=== PATIENT | male | born 1955 | race African-American/Black ===

== ENCOUNTER 2017-05-23 06:03 | Day surgery (SDC) | payer MEDICARE ==
[2017-05-22 15:28] VITALS: BMI 49.4
[2017-05-23 06:47] LABS: #Eosinphils 0.2 thou/uL (0.0-0.7); #Lymphocytes 2.5 thou/uL (1.20-3.40); #Monocytes 0.7 thou/uL (0.11-0.59); #Neutrophils 3.1 thou/uL (1.40-6.50); %Basophils 0.5 % (0.0-1.0); %Eosinophils 2.6 % (0.0-10.0); %Lymphocytes 38.6 % (21.0-51.0); Hematocrit 40.7 % (42.0-52.0); Mean Platelet Volume 7.7 fL (7.4-10.4); Red Blood Cell (RBC) Count 4.72 mill/uL (4.70-6.10); White Blood Cell (WBC) Count 6.4 thou/uL (4.8-10.8)
[2017-05-23] MEDS ORDERED: Heparin 5,000 UNITS/ML VIAL ONE ×2 (06:48→08:33)
[2017-05-23] MEDS ORDERED: Ioversol 68 % 50 ML VIAL ONE (06:48)
[2017-05-23] MEDS ORDERED: Bupivacaine 0.25% HCL 30 ML VIAL ONE (06:48)
[2017-05-23] MEDS ORDERED: Protamine Sulfate 50 MG/5 ML VIAL ONE (06:49)
[2017-05-23 06:59] LABS: Anion Gap 19 mmol/L (10-20); BUN (Urea Nitrogen) 28 mg/dL (8.4-25.7); Calc. Creatinine Clearance 29 mL/min (70-130); Calcium 9.1 mg/dL (7.8-10.44); Carbon Dioxide 28 mmol/L (23-31); Chloride 96 mmol/L (98-107); Estimated GFR-MDRD 13
[2017-05-23] MEDS ORDERED: Midazolam HCl 2 mg/2 ml Vial ONE (07:02)
[2017-05-23] MEDS ORDERED: Fentanyl 100 MCG/2 ML VIAL ONE ×2 (07:02→09:54)
[2017-05-23] MEDS ORDERED: CEFAZOLIN/Water 2 GM/20 ML SYRINGE ONE (07:15)
[2017-05-23] MEDS ORDERED: Propofol 500 MG/50 ML VIAL ONE ×3 (07:30→09:54)
[2017-05-23] MEDS ORDERED: Labetalol HCl 100 MG/20 ML SYR ONE (09:20)
[2017-05-23] MEDS ORDERED: Propofol 200 MG/20 ML VIAL ONE (09:20)
[2017-05-23] MEDS ORDERED: Heparin 10,000 UNITS/ 10 ML VIAL ONE (10:59)
--- NOTE | 2017-05-31 19:00 | PDOC.OP ---
Operative Note - Operative Note Operative Note: PROCEDURE: Left upper arm radiocephalic AV fistula SURGEON: Kenyetta Devries M.D. DATE OF PROCEDURE: 05/23/2017 PREOPERATIVE DIAGNOSIS: Renal failure POSTOPERATIVE DIAGNOSIS: Renal failure HISTORY: Patient with end-stage renal failure and failed left Mickey fistula likely due to severely calcified radial artery. He returns to the operating room for a left upper arm AV fistula. PROCEDURE IN DETAIL: After informed consent was obtained and appropriate preoperative antibiotics administered, the patient was taken to the operating room and placed in the supine position and monitored anesthesia care was administered. A preoperative block had been performed by Anesthesia and the adequacy of block was confirmed. The arm was prepped and draped in a standard sterile fashion and an incision made between the palpable antecubital vein and radial artery. Dissection was carried out to the cephalic vein, which appeared to be of adequate quality and caliber to support a fistula. This was dissected free circumferentially, ligated, and divided distally, and spatulated with Espinoza scissors. This was serially interrogated with cardiac dilators and easily accepted up to a 4 mm cardiac dilator. This was flushed with heparinized saline and clamped with a bulldog clamp. The radial artery was then dissected free and found to be of adequate quality and caliber to support a fistula. The ulnar artery was not identified and the patient likely had a high branching of his brachial artery. He had a monophasic s signal in his ulnar artery and no palpable pulse at the level of the wrist. Heparin was administered systemically and allowed to circulate for 3 minutes following which the radial artery was clamped proximally and distally, with no change in the monophasic signal at the level of the ulnar artery but loss of signal in the radial artery after clamping, confirming that this was the radial artery. An anterior arteriotomy was created with an 11 blade scalpel and extended with Espinoza scissors. An end-to-side anastomosis created with a running 6-0 Prolene suture with excellent technical result. Prior to tying down the anastomosis, the inflow was released to flush the anastomosis. Flow was established first through the fistula and then through the distal radial artery. Hemostasis at the site was confirmed, and an excellent thrill was felt in the cephalic vein outflow and an excellent bruit was heard with Doppler as well up to the upper arm. Hemostasis at the operative site was again confirmed. The incision was closed with a running 3-0 subcutaneous and running 4-0 subcuticular Monocryl sutures. Dermabond dressings were placed and the patient was taken to the recovery room in good condition. Estimated blood loss was minimal. There were no complications. There were no specimens.
== END 2017-05-23 11:15 | disposition home or self-care (01) ==
LOC: SDC 06:03
PROVIDERS: ATTEND Surgery
PROC: 031C0AF Bypass Left Radial Artery to Lower Arm Vein with Autologous Arterial Tissue, Open Approach (ICD-10-PCS; principal; 2017-05-23)
DX: E11.22 Type 2 diabetes mellitus with diabetic chronic kidney disease (principal); I12.0 Hypertensive chronic kidney disease with stage 5 chronic kidney disease or end stage renal disease; N18.6 End stage renal disease; E78.5 Hyperlipidemia, unspecified; Z87.891 Personal history of nicotine dependence; Z83.3 Family history of diabetes mellitus; Z82.49 Family history of ischemic heart disease and other diseases of the circulatory system; Z99.2 Dependence on renal dialysis
CPT/HCPCS: 80048; 85025; J1644; J2250; J2704; J2720; J3010; Q9967; S0020

== ENCOUNTER 2017-07-30 10:47 | Day surgery (SDC) | payer MEDICARE ==
[2017-07-29 14:05] VITALS: BMI 50.1
[2017-07-30] MEDS ORDERED: Heparin 5,000 UNITS/ML VIAL ONE (11:46)
[2017-07-30] MEDS ORDERED: Protamine Sulfate 50 MG/5 ML VIAL ONE (11:46)
[2017-07-30] MEDS ORDERED: Bupivacaine/Epinephrine 0.25% 30 ML VIAL ONE (11:46)
[2017-07-30] MEDS ORDERED: CEFAZOLIN/Water 2 GM/20 ML SYRINGE ONE (11:53)
[2017-07-30 11:58] LABS: #Eosinphils 0.1 thou/uL (0.0-0.7); #Monocytes 0.7 thou/uL (0.11-0.59); #Neutrophils 3.4 thou/uL (1.40-6.50); %Basophils 0.8 % (0.0-1.0); %Eosinophils 2.2 % (0.0-10.0); %Monocytes 11.6 % (0.0-10.0); %Neutrophils 53.4 % (42.0-75.0); Hemoglobin 10.6 g/dL (14.0-18.0); Mean Corpuscular HGB CONC 31.7 g/dL (32.0-36.0); Mean Corpuscular Hemoglobin 29.4 pg (27.0-31.0); Mean Corpuscular Volume 92.7 fl (80.0-94.0); Mean Platelet Volume 7.6 fL (7.4-10.4); Platelet Count 164 thou/uL (130-400); RBC Distribution Width 15.9 % (11.5-14.5); Red Blood Cell (RBC) Count 3.62 mill/uL (4.70-6.10); White Blood Cell (WBC) Count 6.3 thou/uL (4.8-10.8)
[2017-07-30] MEDS ORDERED: Fentanyl 100 MCG/2 ML VIAL ONE ×2 (12:06→12:38)
[2017-07-30] MEDS ORDERED: Midazolam HCl 2 mg/2 ml Vial ONE ×2 (12:06→12:38)
[2017-07-30] MEDS ORDERED: Lidocaine 1% (PF) 30 ML VIAL ONE (12:10)
[2017-07-30 12:33] LABS: Anion Gap 16 mmol/L (10-20); BUN (Urea Nitrogen) 36 mg/dL (8.4-25.7); Calc. Creatinine Clearance 26 mL/min (70-130); Calcium 8.9 mg/dL (7.8-10.44); Carbon Dioxide 30 mmol/L (23-31); Chloride 98 mmol/L (98-107); Estimated GFR-MDRD 11; Glucose 124 mg/dL (80-115); Potassium 3.9 mmol/L (3.5-5.1); Sodium 140 mmol/L (136-145)
[2017-07-30] MEDS ORDERED: Diprivan 0 ML ONE (13:20)
[2017-07-30] MEDS ORDERED: Propofol 500 MG/50 ML VIAL ONE (13:20)
[2017-07-30] MEDS ORDERED: Bupivacaine PF 0.5% 30 ML VIAL ONE (14:59)
[2017-07-30] MEDS ORDERED: Heparin 10,000 UNITS/ 10 ML VIAL ONE ×2 (15:46→15:57)
[2017-07-30] MEDS ORDERED: Propofol 200 MG/20 ML VIAL ONE (15:46)
--- NOTE | 2017-07-31 17:21 | PDOC.OP ---
Operative Note - Operative Note Operative Note: PROCEDURE: Revision and transposition of left upper arm cephalic AV fistula DATE OF PROCEDURE: 07/30/2017 SURGEON: Kenyetta Devries M.D. PREOPERATIVE DIAGNOSES: Left upper arm cephalic AV fistula too deep to access POSTOPERATIVE DIAGNOSIS: Left upper arm cephalic AV fistula too deep to access, with short stenotic segment HISTORY: Mr. Davis is a 61-year-old man with end-stage renal failure on dialysis. He has a left upper arm cephalic fistula but due to his body habitus this is too deep to palpate above the antecubital fossa. Recommendation was made to proceed with transposition. PROCEDURE IN DETAIL: After informed consent was obtained and appropriate preoperative antibiotics and block were administered, the patient was taken to the operating room he was placed in supine position and IV sedation was administered. He was prepped and draped in standard sterile fashion and local anesthesia infused the skin and subcutaneous tissues overlying the upper arm cephalic vein. This was dissected free from the level of the antecubital fossa to the shoulder, ligating side branches as they were encountered and marking the anterior surface of the vein to prevent rotation during transposition. The proximal segment appeared well dilated and arterialized but there was a short fibrotic segments in the mid upper arm with normal-appearing vein above it. It was felt that this would lead to a shortened lifespan of the fistula and prevent maturation of the upper arm vein so the decision was made to excise this segments and then transpose the vein to a more subcutaneous position. There was adequate laxity in the vein to allow this as only about a centimeter of the vein was abnormal. Heparin was administered systemically and allowed to circulate for 3 minutes following which the fistula was occluded proximally with vessel loops. The stenotic segment was incised anteriorly with an 11 blade and heparinized saline infused proximally and distally and the vein re-occluded proximally and distally. The incision was extended with Espinoza scissors until normal vein was encountered proximally and distally. The vein was spatulated proximally and distally excising the stenotic segment and incorporating a large side branch of the upper vein into the spatulation to allow a wider anastomosis. An end-to-end anastomosis was then created with a running 6-0 Prolene suture with excellent technical result. Flow was restored through the fistula and hemostasis at the suture line confirmed. A superficial subcutaneous space was then created medial to the incision by incising the subcutaneous fat up to the level of the dermis. The vein easily reached up into this space and was transpose taking care to maintain the correct orientation. Subcutaneous tissues were then reapproximated lateral to the vein creating a subcutaneous tunnel and fixing the vein in place. The wound was then examined and hemostasis verified. Surgicel was placed into the subcutaneous tissues as a precaution and the subcutaneous tissues reapproximated in layers. The skin was closed with skin jo ann and the fistula had an easily palpable thrill along the upper arm. A Prevena wound dressing was placed. The arm was wrapped with an Celestino wrap and the patient was taken to the recovery room in good condition. Estimated blood loss was minimal. There were no complications. There were no specimens.
== END 2017-07-30 16:42 | disposition home or self-care (01) ==
LOC: SDC 10:47
PROVIDERS: ATTEND Surgery
PROC: 03180ZD Bypass Left Brachial Artery to Upper Arm Vein, Open Approach (ICD-10-PCS; principal; 2017-07-30)
DX: I12.0 Hypertensive chronic kidney disease with stage 5 chronic kidney disease or end stage renal disease (principal); E11.22 Type 2 diabetes mellitus with diabetic chronic kidney disease; N18.6 End stage renal disease; Z79.4 Long term (current) use of insulin; Z79.899 Other long term (current) drug therapy; Z79.82 Long term (current) use of aspirin; Z99.2 Dependence on renal dialysis; Z90.49 Acquired absence of other specified parts of digestive tract; Z98.890 Other specified postprocedural states; Z83.3 Family history of diabetes mellitus; Z82.49 Family history of ischemic heart disease and other diseases of the circulatory system
CPT/HCPCS: 36416; 80048; 85025; 96374; J1644; J2001; J2250; J2704; J2720; J3010; S0020

== ENCOUNTER 2017-08-27 09:58 | Outpatient (CLI) | payer MEDICARE | END 2017-08-27 09:59 | disposition home or self-care (01) | LOC: BICRAD 09:58 | DX: L97.429 Non-pressure chronic ulcer of left heel and midfoot with unspecified severity (principal); S92.515A Nondisplaced fracture of proximal phalanx of left lesser toe(s), initial encounter for closed fracture; M79.89 Other specified soft tissue disorders; M89.572 Osteolysis, left ankle and foot ==

== ENCOUNTER 2018-05-27 08:23 | Day surgery (SDC) | payer MEDICARE ==
[2018-05-26 13:22] VITALS: BMI 50.4
[2018-05-27] MEDS ORDERED: Midazolam HCl 2 mg/2 ml Vial ONE ×2 (10:47→15:19)
[2018-05-27 13:38] LABS: Hemoglobin 12.2 g/dL (14.0-18.0); Mean Corpuscular HGB CONC 30.5 g/dL (32.0-36.0); Mean Corpuscular Hemoglobin 28.3 pg (27.0-31.0); Mean Corpuscular Volume 92.8 fL (78.0-98.0); Mean Platelet Volume 8.2 fL (7.4-10.4); Platelet Count 166 thou/uL (130-400)
[2018-05-27 13:39] LABS: Anion Gap 22 mmol/L (10-20); BUN (Urea Nitrogen) 27 mg/dL (8.4-25.7); Calc. Creatinine Clearance 26 mL/min (70-130); Calcium 8.9 mg/dL (7.8-10.44); Carbon Dioxide 24 mmol/L (23-31); Chloride 96 mmol/L (98-107); Estimated GFR-MDRD 11; Glucose 141 mg/dL (80-115); Potassium 3.6 mmol/L (3.5-5.1); Sodium 138 mmol/L (136-145)
[2018-05-27 13:41] LABS: Lymphocytes 26 % (21-51); MDiff Complete? YES; Monocytes 6 % (0-10); Neutrophil 68 % (42-75); RBC Morphology Normal; White Blood Cell (WBC) Count 8.3 thou/uL (4.8-10.8)
[2018-05-27] MEDS ORDERED: Ketamine 50 MG/ML VIAL ONE (15:19)
[2018-05-27] MEDS ORDERED: ePHEDrine/0.9% NaCl/PF SYRINGE 50 mg/10 ml ONE (16:11)
[2018-05-27] MEDS ORDERED: Glycopyrrolate 0.2 MG/ML 5 ML SYRINGE ONE (16:11)
--- NOTE | 2018-05-28 01:13 | OP ---
DATE OF PROCEDURE: 05/27/2018 PROCEDURES: Esophagogastroduodenoscopy dilatation and screening colonoscopy. PREPROCEDURE DIAGNOSES: 1. Dysphagia for solids intermittently for several months in the mid chest region with no bolus obst ruction. 2. Screening colonoscopy. ANESTHESIA: TIVA. DESCRIPTION OF PROCEDURE: The patient was just brought to endoscopy suite and his systolic blood pre ssures were in the 60s-80s, although he was completely awake with no symptoms. He was afebrile. His pulse was normal. When I have cancelled the procedure, I called his ingot caster noting he had a no rmal echocardiogram in October of this year with normal ejection fraction. 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 He had no evidence of block on his EKG here. CBC showed a white co unt of 8.3, hemoglobin 12.2, platelet count is 166. Sodium was 138, potassium 3.6, BUN and creatinin e are 27 and 6.14, it was felt that he is likely dry from dialysis yesterday. He was given a liter b olus of saline and we waited a couple of hours and his pressure came to the systolics in the 80s and 90s. He underwent the procedure with ketamine with no complications and stable blood pressure throug holashell. POSTPROCEDURE DIAGNOSES: 1. He has mildly dilated esophagus, but no evidence of strictures. There was a mild Schatzki's ring associated with a hiatal hernia. The entire esophagus was dilated with 20 mm balloon with no effect . 2. The stomach was normal as was the duodenum. 3. Colonoscopy screening was normal. RECOMMENDATIONS: 1. Repeat colonoscopy in 10 years. 2. Trial of Protonix 40 mg once daily. 3. PCP and his dialysis physician.
== END 2018-05-27 16:50 | disposition home or self-care (01) ==
LOC: SDC 08:23
PROVIDERS: ATTEND Internal Medicine Gastroenterology
PROC: 0DJD8ZZ Inspection of Lower Intestinal Tract, Via Natural or Artificial Opening Endoscopic (ICD-10-PCS; principal; 2018-05-27)
PROC: 0D758ZZ Dilation of Esophagus, Via Natural or Artificial Opening Endoscopic (ICD-10-PCS; 2018-05-27)
DX: Z12.11 Encounter for screening for malignant neoplasm of colon (principal); K22.2 Esophageal obstruction; K44.9 Diaphragmatic hernia without obstruction or gangrene; K22.8 Other specified diseases of esophagus; G47.30 Sleep apnea, unspecified; E78.00 Pure hypercholesterolemia, unspecified; E11.22 Type 2 diabetes mellitus with diabetic chronic kidney disease; N18.9 Chronic kidney disease, unspecified; E66.9 Obesity, unspecified; Z68.43 Body mass index [BMI] 50.0-59.9, adult; Z86.73 Personal history of transient ischemic attack (TIA), and cerebral infarction without residual deficits; Z87.891 Personal history of nicotine dependence; Z79.02 Long term (current) use of antithrombotics/antiplatelets; Z79.4 Long term (current) use of insulin; Z79.82 Long term (current) use of aspirin; Z79.899 Other long term (current) drug therapy; Z88.0 Allergy status to penicillin; Z95.0 Presence of cardiac pacemaker
CPT/HCPCS: 43249; 80048; 82962; 85025; G0121; 36416; J2250

== ENCOUNTER 2021-06-26 18:50 | Inpatient (IN) | payer MEDICARE ==
[~2021-06-26 18:50] MED LIST: Iopamidol-370 76% 500 ML 1 ML ONE
[2021-06-26] MEDS ORDERED: Cefepime 2 GM VIAL ONE (20:38)
[2021-06-26] MEDS ORDERED: VANCOMYCIN 2 GRAM/400 ML BAG 2 GM in Premix Bag 1 BAG IVPB SCH (20:45)
[2021-06-26 21:02] LABS: #Basophils 0.1 thou/uL (0.0-0.2); #Eosinphils 0.3 thou/uL (0.0-0.7); #Monocytes 0.7 thou/uL (0.11-0.59); #Neutrophils 8.7 thou/uL (1.40-6.50); %Basophils 0.7 % (0.0-1.0); %Eosinophils 2.7 % (0.0-10.0); %Monocytes 5.7 % (0.0-10.0); %Neutrophils 67.9 % (42.0-75.0); Hemoglobin 10.7 g/dL (14.0-18.0); Mean Corpuscular HGB CONC 30.7 g/dL (32.0-36.0); Mean Corpuscular Hemoglobin 27.7 pg (27.0-31.0); Mean Corpuscular Volume 90.4 fL (78.0-98.0); Mean Platelet Volume 6.6 fL (7.4-10.4); Platelet Count 295 thou/uL (130-400); RBC Distribution Width 15.1 % (11.5-14.5); Red Blood Cell (RBC) Count 3.87 mill/uL (4.70-6.10); White Blood Cell (WBC) Count 12.8 thou/uL (4.8-10.8)
[2021-06-26 21:26] LABS: ALT (SGPT) 22 U/L (8-55); AST (SGOT) 46 U/L (5-34); Albumin 2.7 g/dL (3.4-4.8); Alkaline Phosphatase 91 U/L (40-110); Anion Gap 14 mmol/L (10-20); BUN (Urea Nitrogen) 9 mg/dL (8.4-25.7); Bilirubin, Total 0.3 mg/dL (0.2-1.2); Calc. Creatinine Clearance 0 mL/min (70-130); Calcium 9.4 mg/dL (7.8-10.44); Carbon Dioxide 29 mmol/L (23-31); Chloride 97 mmol/L (98-107); Globulin 5.1 g/dL (2.4-3.5); Glucose 114 mg/dL (80-115); Potassium 3.5 mmol/L (3.5-5.1); Protein, Total 7.8 g/dL (5.8-8.1); Sodium 136 mmol/L (136-145)
[2021-06-26] MEDS ORDERED: Ondansetron PF 4 MG/2 ML Vial IVP PRN (23:34)
[2021-06-26] MEDS ORDERED: Dextrose 5% in Water 1,000 ML IV PRN (23:34)
[2021-06-26] MEDS ORDERED: HumaLOG 300 UNITS/3 ML VIAL SC PRN ×2 (23:34)
[2021-06-26] MEDS ORDERED: Bisacodyl 10 MG SUPP PR PRN (23:34)
[2021-06-26] MEDS ORDERED: Dextrose 50% Abboject 50 ML SYRINGE SLOW IVP PRN (23:34)
[2021-06-26] MEDS ORDERED: Heparin 5,000 UNITS/ML VIAL SC SCH (23:45)
[2021-06-26] MEDS ORDERED: Morphine 4 MG/ML VIAL SLOW IVP PRN (23:46)
[2021-06-27 01:25] VITALS: BMI 46.7
[2021-06-27] MEDS ORDERED: metroNIDAZOLE 250 MG TAB PO SCH (02:45)
[2021-06-27] MEDS: Levothyroxine Sodium 25 MCG TAB PO SCH (04:55)
[2021-06-27] MEDS ORDERED: metroNIDAZOLE 250 MG in Admixture Fee 2 EACH IVPB SCH (06:00)
[2021-06-27] MEDS: Calcium Acetate 667 MG CAP PO SCH ×3 (08:00→17:58)
[2021-06-27] MEDS ORDERED: FLU VACC QS2021-22(65YR UP)/PF 240 MCG/0.7 ML SYRINGE IM ONE (09:00)
[2021-06-27] MEDS ORDERED: Cefepime 1 GM in Sodium Chloride 0.9% 100 ML IVPB SCH (09:00)
[2021-06-27 09:21] LABS: Albumin 2.5 g/dL (3.4-4.8); Anion Gap 11 mmol/L (10-20); BUN (Urea Nitrogen) 13 mg/dL (8.4-25.7); BUN/Creatinine Ratio 3.56; Calc. Creatinine Clearance 39 mL/min (70-130); Calcium 9.4 mg/dL (7.8-10.44); Carbon Dioxide 28 mmol/L (23-31); Chloride 99 mmol/L (98-107); Glucose 97 mg/dL (80-115); Potassium 3.2 mmol/L (3.5-5.1); Sodium 135 mmol/L (136-145)
[2021-06-27 09:24] LABS: Hemoglobin 10.3 g/dL (14.0-18.0); Mean Corpuscular HGB CONC 29.9 g/dL (32.0-36.0); Mean Corpuscular Hemoglobin 27.2 pg (27.0-31.0); Mean Corpuscular Volume 90.8 fL (78.0-98.0); Mean Platelet Volume 6.8 fL (7.4-10.4); Platelet Count 254 thou/uL (130-400); RBC Distribution Width 15.2 % (11.5-14.5); Red Blood Cell (RBC) Count 3.79 mill/uL (4.70-6.10); White Blood Cell (WBC) Count 10.2 thou/uL (4.8-10.8)
[2021-06-27 09:25] LABS: Phosphorus 1.6 mg/dL (2.3-4.7)
[2021-06-27] MEDS ORDERED: Potassium Phosphate 30 MMOL in Sodium Chloride 0.9% 250 ML 250 ML IVPB SCH (10:15)
[2021-06-27 10:18] LABS: Band 2 % (5-11); Eosinophils 3 % (0-10); Hypochromia SLIGHT = 6-15 cells (100X) (0-5/hpf); Lymphocytes 23 % (21-51); MDiff Complete? YES; Monocytes 12 % (0-10); Neutrophil 59 % (42-75); Platelet Morphology Comment Appears Adequate; Polychromasia SLIGHT = 2-3 cells (100X) (0-2/hpf); Stomatocytes SLIGHT = 2-5 cells (100X) (0-1/hpf)
[2021-06-27] MEDS: Cefepime 2 GM in Sodium Chloride 0.9% 100 ML IVPB SCH (10:27)
[2021-06-27] MEDS: Aspirin 81 mg Enteric Coated Tablet PO SCH (10:57)
[2021-06-27] MEDS: Midodrine HCl 5 MG TAB PO SCH ×2 (10:57→20:42)
[2021-06-27] MEDS: metroNIDAZOLE 250 MG TAB PO SCH ×3 (10:58→20:42)
[2021-06-27] MEDS: Heparin 5,000 UNITS/ML VIAL SC SCH ×2 (11:47→20:43)
[2021-06-27] MEDS: HYDROcodone/Acetaminophen 7.5/325 mg Tablet PO PRN (12:09)
[2021-06-27 22:09] LABS: Vancomycin, Random 20.4 ug/mL (See Comment)
[2021-06-28] MEDS: Levothyroxine Sodium 25 MCG TAB PO SCH (05:49)
[2021-06-28] MEDS: Calcium Acetate 667 MG CAP PO SCH ×3 (08:00→17:45)
[2021-06-28 08:02] LABS: SARS-CoV-2 PCR by NAA Not Detected (NotDetected)
[2021-06-28 08:57] LABS: Anion Gap 14 mmol/L (10-20); BUN (Urea Nitrogen) 20 mg/dL (8.4-25.7); Calc. Creatinine Clearance 27 mL/min (70-130); Calcium 9.4 mg/dL (7.8-10.44); Carbon Dioxide 27 mmol/L (23-31); Chloride 100 mmol/L (98-107); Glucose 115 mg/dL (80-115); Phosphorus 3.2 mg/dL (2.3-4.7); Potassium 3.5 mmol/L (3.5-5.1); Sodium 137 mmol/L (136-145)
[2021-06-28] MEDS ORDERED: Heparin 10,000 UNITS/ 10 ML VIAL ONE (09:09)
[2021-06-28] MEDS: HYDROcodone/Acetaminophen 7.5/325 mg Tablet PO PRN ×2 (09:21→21:20)
[2021-06-28] MEDS: metroNIDAZOLE 250 MG TAB PO SCH ×3 (14:06→21:20)
[2021-06-28] MEDS: Cefepime 2 GM in Sodium Chloride 0.9% 100 ML IVPB SCH (14:48)
[2021-06-28] MEDS: Heparin 5,000 UNITS/ML VIAL SC SCH ×2 (14:48→21:20)
[2021-06-28] MEDS: Midodrine HCl 5 MG TAB PO SCH ×2 (14:48→21:19)
[2021-06-28] MEDS: Aspirin 81 mg Enteric Coated Tablet PO SCH (14:48)
[2021-06-28 22:03] LABS: Vancomycin, Random 15.1 ug/mL (See Comment)
[2021-06-28] MEDS ORDERED: Vancomycin HCl 750 MG in Sodium Chloride 0.9% 250 ML 250 ML IVPB SCH (22:30)
[2021-06-28] MEDS ORDERED: Vancomycin 1 GM in Premix Bag 1 BAG IVPB SCH (23:45)
[2021-06-29] MEDS: Levothyroxine Sodium 25 MCG TAB PO SCH (06:20)
[2021-06-29] MEDS: Midodrine HCl 5 MG TAB PO SCH (08:31)
[2021-06-29] MEDS: Aspirin 81 mg Enteric Coated Tablet PO SCH (08:31)
[2021-06-29] MEDS: HYDROcodone/Acetaminophen 7.5/325 mg Tablet PO PRN (08:31)
[2021-06-29] MEDS: Heparin 5,000 UNITS/ML VIAL SC SCH (08:32)
[2021-06-29] MEDS: Calcium Acetate 667 MG CAP PO SCH ×2 (08:32→12:07)
[2021-06-29] MEDS: Cefepime 2 GM in Sodium Chloride 0.9% 100 ML IVPB SCH (08:35)
[2021-06-29] MEDS: metroNIDAZOLE 250 MG TAB PO SCH (08:35)
[2021-06-29 09:04] VITALS: BP 120/66; TEMP 98.4
== END 2021-06-29 13:45 | DRG 727 ==
LOC: ERS 18:50 → T4-A 22:54 → OBSVTOIN 22:55
PROVIDERS: ADMIT Student in an Organized Health Care Education/Training Program; ATTEND Internal Medicine
PROC: 5A1D70Z Performance of Urinary Filtration, Intermittent, Less than 6 Hours Per Day (ICD-10-PCS; principal; 2021-06-28)
DX: N49.2 Inflammatory disorders of scrotum (principal); L89.154 Pressure ulcer of sacral region, stage 4; N18.6 End stage renal disease; I50.32 Chronic diastolic (congestive) heart failure; I13.2 Hypertensive heart and chronic kidney disease with heart failure and with stage 5 chronic kidney disease, or end stage renal disease; Z68.42 Body mass index [BMI] 45.0-49.9, adult; Z20.822 Contact with and (suspected) exposure to COVID-19; E03.9 Hypothyroidism, unspecified; D63.1 Anemia in chronic kidney disease; E66.01 Morbid (severe) obesity due to excess calories; I25.10 Atherosclerotic heart disease of native coronary artery without angina pectoris; I95.89 Other hypotension; E11.22 Type 2 diabetes mellitus with diabetic chronic kidney disease; E87.6 Hypokalemia; E83.39 Other disorders of phosphorus metabolism; Z99.2 Dependence on renal dialysis; Z95.810 Presence of automatic (implantable) cardiac defibrillator; Z88.0 Allergy status to penicillin; Z79.82 Long term (current) use of aspirin; Z79.899 Other long term (current) drug therapy; Z79.4 Long term (current) use of insulin; Z90.49 Acquired absence of other specified parts of digestive tract; Z98.890 Other specified postprocedural states; Z87.891 Personal history of nicotine dependence; Z74.01 Bed confinement status; Z93.3 Colostomy status
CPT/HCPCS: 36415; 36416; 74177; 80048; 80053; 80069; 80202; 83605; 84100; 85007; 85025; 85027; 87040; 96365; 96367; J0692; J1644; J3370; J3490; J7050; Q9967; U0003; U0005

== ENCOUNTER 2022-12-04 15:52 | Inpatient (IN) | payer MEDICARE ==
[2022-12-04] MEDS ORDERED: Acetaminophen 325 MG TAB PO PRN (17:30)
[2022-12-04] MEDS ORDERED: Ondansetron ODT 4 MG TAB PO PRN (17:30)
[2022-12-04 18:05] VITALS: BMI 42.3
[2022-12-04] MEDS ORDERED: Dextrose 50% Abboject 50 ML SYRINGE SLOW IVP PRN (18:18)
[2022-12-04] MEDS ORDERED: Dextrose 5% in Water 1,000 ML IV PRN (18:18)
[2022-12-04] MEDS ORDERED: HumaLOG 300 UNITS/3 ML VIAL SC PRN ×2 (18:18)
[2022-12-04] MEDS ORDERED: Vancomycin Dialysis Sliding Scale (Wt > 99) FS SCH (19:00)
[2022-12-04 19:47] LABS: Anion Gap 18 mmol/L (10-20); BUN (Urea Nitrogen) 43 mg/dL (8.4-25.7); Calc. Creatinine Clearance 20 mL/min (70-130); Calcium 9.8 mg/dL (7.8-10.44); Carbon Dioxide 25 mmol/L (23-31); Chloride 98 mmol/L (98-107); Estimated GFR 9; Glucose 104 mg/dL (80-115); Potassium 4.6 mmol/L (3.5-5.1); Sodium 136 mmol/L (136-145)
[2022-12-04] MEDS ORDERED: Vancomycin 1.5 GRAM/300 ML BAG IVPB SCH (21:00)
[2022-12-04] MEDS ORDERED: Famotidine 20 MG TAB PO SCH (21:00)
[2022-12-04] MEDS: rOPINIRole HCl 0.25 MG TAB PO SCH (21:24)
[2022-12-04] MEDS: Midodrine HCl 5 MG TAB PO SCH (21:24)
[2022-12-04] MEDS: Melatonin 3 MG TAB PO SCH (21:24)
[2022-12-04] MEDS: Atorvastatin Calcium 10 MG TAB PO SCH (21:24)
[2022-12-04] MEDS ORDERED: Dextrose 5 %-0.45 % NaCl 1,000 ML IV SCH (23:55)
[2022-12-05] MEDS ORDERED: Sodium Chloride 0.9% 500 ML IV SCH (04:45)
[2022-12-05] MEDS: Midodrine HCl 5 MG TAB PO SCH ×3 (05:24→20:41)
[2022-12-05] MEDS ORDERED: Sodium Chloride 0.9% 100 ML ONE (07:39)
[2022-12-05] MEDS ORDERED: cefTRIAXone (ROCEPHIN) 1 GM VIAL ONE (07:39)
[2022-12-05] MEDS ORDERED: Heparin 1,000 UNITS/ML VIAL ONE (08:27)
[2022-12-05 08:41] LABS: #Eosinphils 0.2 thou/uL (0.0-0.7); #Monocytes 0.6 thou/uL (0.11-0.59); #Neutrophils 3.6 thou/uL (1.40-6.50); %Basophils 0.3 % (0.0-1.0); %Eosinophils 2.5 % (0.0-10.0); %Lymphocytes 31.6 % (21.0-51.0); %Monocytes 8.8 % (0.0-10.0); %Neutrophils 56.6 % (42.0-75.0); Hemoglobin 10.3 g/dL (14.0-18.0); Mean Corpuscular HGB CONC 30.2 g/dL (32.0-36.0); Mean Corpuscular Hemoglobin 27.8 pg (27.0-31.0); Mean Corpuscular Volume 92.2 fl (78.0-98.0); Mean Platelet Volume 9.8 fL (7.4-10.4); Platelet Count 185 10x3/uL (130-400); RBC Distribution Width 13.1 % (11.5-14.5); White Blood Cell (WBC) Count 6.4 10x3/uL (4.8-10.8)
[2022-12-05] MEDS ORDERED: fentaNYL PF 100 MCG/2 ML SYRINGE ONE (08:46)
[2022-12-05 09:06] LABS: Anion Gap 16 mmol/L (10-20); BUN (Urea Nitrogen) 52 mg/dL (8.4-25.7); Calc. Creatinine Clearance 18 mL/min (70-130); Calcium 9.4 mg/dL (7.8-10.44); Carbon Dioxide 25 mmol/L (23-31); Chloride 98 mmol/L (98-107); Estimated GFR 8; Glucose 118 mg/dL (80-115); Potassium 4.3 mmol/L (3.5-5.1); Sodium 135 mmol/L (136-145)
[2022-12-05] MEDS ORDERED: PHENYLEPHRINE-NS 100 MCG/ML 10 ML SYRINGE ONE (09:10)
[2022-12-05] MEDS ORDERED: Lidocaine 1% PF 5 ML VIAL ONE (09:10)
[2022-12-05] MEDS ORDERED: Ondansetron PF 4 MG/2 ML Vial ONE (09:10)
[2022-12-05] MEDS ORDERED: PROPOFOL 200 MG/20 ML VIAL ONE (09:10)
[2022-12-05] MEDS ORDERED: Calcium Chloride 1 GM/10 ML Abboject SYRINGE ONE (09:10)
[2022-12-05] MEDS ORDERED: Heparin 10,000 UNITS/ 10 ML VIAL ONE (09:11)
[2022-12-05 09:29] LABS: Vancomycin, Random 17.3 ug/mL (See Comment)
[2022-12-05] MEDS: Fluticasone Propionate Nasal Spray 16 gm Bottle NASAL SCH (10:18)
[2022-12-05] MEDS: Folic Acid/Vit B Comp W-C PO SCH (10:18)
[2022-12-05] MEDS: Insulin Glargine 30 UNITS/0.3 ML VIAL SC SCH (10:18)
[2022-12-05] MEDS: Aspirin 81 mg Enteric Coated Tablet PO SCH (10:18)
[2022-12-05] MEDS: rOPINIRole HCl 0.25 MG TAB PO SCH ×2 (10:19→20:42)
[2022-12-05] MEDS: cefTRIAXone\\ROCEPHIN 1 GM in Sodium Chloride 0.9% 100 ML IVPB SCH (10:19)
[2022-12-05] MEDS: Multivitamin W/ Minerals 1 TAB PO SCH (10:19)
[2022-12-05] MEDS ORDERED: HYDROcodone/Acetaminophen 5/325 mg Tablet PO PRN (10:36)
[2022-12-05] MEDS ORDERED: Heparin 1,000 UNITS/ML VIAL SLOW IVP SCH (12:30)
[2022-12-05 14:13] LABS: HBSAg Index 0.16 S/CO (0-0.99); Hep B Core Total Ab Non-Reactive (NonReactive); Hep B Core Total Index 0.14 S/CO (0-0.79); Hep B Surf Ag Non-Reactive S/CO (NonReactive)
[2022-12-05 14:35] LABS: HBSAB Concentration 168.68 mIU/mL; Hep B Surf AB Reactive (NonReactive); Hep C IgG Ab Reflex HepC Qnt S/CO (NonReactive); Hep C Index 1.86 S/CO (0-0.79)
[2022-12-05] MEDS ORDERED: Vancomycin 1 GM in Premix Bag 1 BAG IVPB SCH ×2 (17:00→20:13)
[2022-12-05] MEDS: Melatonin 3 MG TAB PO SCH (20:41)
[2022-12-05] MEDS: Atorvastatin Calcium 10 MG TAB PO SCH (20:41)
[2022-12-05] MEDS ORDERED: Famotidine 20 MG TAB PO SCH (21:00)
[2022-12-06] MEDS: HYDROcodone/Acetaminophen 5/325 mg Tablet PO PRN ×2 (03:11→10:05)
[2022-12-06] MEDS: Midodrine HCl 5 MG TAB PO SCH ×2 (04:51→14:09)
[2022-12-06] MEDS: cefTRIAXone\\ROCEPHIN 1 GM in Sodium Chloride 0.9% 100 ML IVPB SCH (04:51)
[2022-12-06] MEDS: Insulin Glargine 30 UNITS/0.3 ML VIAL SC SCH (10:04)
[2022-12-06] MEDS: Folic Acid/Vit B Comp W-C PO SCH (10:04)
[2022-12-06] MEDS: Fluticasone Propionate Nasal Spray 16 gm Bottle NASAL SCH (10:05)
[2022-12-06] MEDS: Aspirin 81 mg Enteric Coated Tablet PO SCH (10:05)
[2022-12-06] MEDS: rOPINIRole HCl 0.25 MG TAB PO SCH (10:05)
[2022-12-06] MEDS: Multivitamin W/ Minerals 1 TAB PO SCH (10:05)
[2022-12-06 16:31] VITALS: BP 125/62; TEMP 98.1
== END 2022-12-06 17:29 | disposition home or self-care (01) | DRG 617 ==
LOC: SURG B 17:22 → OBSVTOIN 17:30
PROVIDERS: ADMIT Internal Medicine; ATTEND Internal Medicine
PROC: 0Y6M0Z5 Detachment at Right Foot, Complete 2nd Ray, Open Approach (ICD-10-PCS; principal; 2022-12-05)
DX: E11.69 Type 2 diabetes mellitus with other specified complication (principal); E11.52 Type 2 diabetes mellitus with diabetic peripheral angiopathy with gangrene; M86.171 Other acute osteomyelitis, right ankle and foot; Z68.41 Body mass index [BMI] 40.0-44.9, adult; L03.115 Cellulitis of right lower limb; L97.412 Non-pressure chronic ulcer of right heel and midfoot with fat layer exposed; E11.22 Type 2 diabetes mellitus with diabetic chronic kidney disease; N18.6 End stage renal disease; I48.91 Unspecified atrial fibrillation; E11.621 Type 2 diabetes mellitus with foot ulcer; E66.01 Morbid (severe) obesity due to excess calories; E11.628 Type 2 diabetes mellitus with other skin complications; E78.2 Mixed hyperlipidemia; Z99.2 Dependence on renal dialysis; Z88.5 Allergy status to narcotic agent; Z88.0 Allergy status to penicillin; Z79.899 Other long term (current) drug therapy; Z90.49 Acquired absence of other specified parts of digestive tract; Z79.82 Long term (current) use of aspirin; Z79.4 Long term (current) use of insulin
CPT/HCPCS: 11042; 36415; 36416; 80048; 80053; 80202; 83605; 85025; 86704; 87040; 87522; 88305; 88311; 93005; 96365; 96366; 99212; G0463; J0696; J1644; J1815; J2405; J2704; J3370; J3370-JW; J3490; J7030; J7042

== ENCOUNTER 2025-06-18 20:24 | Inpatient (IN) | payer MEDICARE ==
[2025-06-18 21:46] VITALS: BMI 43.5
[2025-06-19] MEDS ORDERED: Dextrose 50% Abboject 50 ML SYRINGE SLOW IVP PRN (01:03)
[2025-06-19] MEDS ORDERED: Glucagon 1 MG/ML KIT IM PRN (01:03)
[2025-06-19 05:59] LABS: #Basophils Less than 0.03 10x3/uL (0.0-0.2); #Eosinophils 0.23 10x3/uL (0.0-0.7); #Monocytes 0.69 10x3/uL (0.11-0.59); #Neutrophils 4.60 10x3/uL (1.40-6.50); %Basophils 0.3 % (0.0-1.0); %Eosinophils 3.4 % (0.0-10.0); %Lymphocytes 18.4 % (21.0-51.0); %Monocytes 10.1 % (0.0-10.0); %Neutrophils 67.5 % (42.0-75.0); Hematocrit 30.4 % (42.0-52.0); Hemoglobin 9.0 g/dL (14.0-18.0); Mean Corpuscular Hemoglobin 26.2 pg (27.0-31.0); Mean Corpuscular Volume 88.6 fL (78.0-98.0); Platelet Count 207 10x3/uL (130-400); Red Blood Cell (RBC) Count 3.43 mill/uL (4.70-6.10); White Blood Cell (WBC) Count 6.81 10x3/uL (4.8-10.8)
[2025-06-19 06:16] LABS: ALT (SGPT) Less than 7 U/L (Less than 45); AST (SGOT) 16 U/L (11-34); Albumin 2.6 g/dL (3.1-4.5); Alkaline Phosphatase 76 U/L (40-110); Anion Gap 16 mmol/L (10-20); BUN (Urea Nitrogen) 23 mg/dL (8.4-25.7); Bilirubin, Total 0.3 mg/dL (0.3-1.2); Calc. Creatinine Clearance 27 mL/min (70-130); Calcium 9.1 mg/dL (7.8-10.44); Carbon Dioxide 26 mmol/L (23-31); Chloride 98 mmol/L (98-107); Globulin 4.4 g/dL (2.4-3.5); Glucose 125 mg/dL (80-115); Potassium 3.5 mmol/L (3.5-5.1); Sodium 136 mmol/L (136-145)
[2025-06-19 07:32] LABS: Vancomycin, Random 10.9 ug/mL (See Comment)
[2025-06-19] MEDS ORDERED: Heparin 5,000 UNITS/ML VIAL SC SCH (09:00)
[2025-06-19] MEDS ORDERED: Enoxaparin 40 MG (0.4 mL) SYRINGE SC SCH (09:00)
[2025-06-19] MEDS ORDERED: Calcium Carbonate 500 MG ChewTAB PO PRN (09:11)
[2025-06-19] MEDS: Lidocaine 1% (PF) 30 ML VIAL ONE (10:15)
[2025-06-19] MEDS ORDERED: Vancomycin Dialysis Sliding Scale (Wt > 99) FS SCH (10:45)
[2025-06-19] MEDS: Acetaminophen 325 MG TAB PO PRN (12:46)
[2025-06-19] MEDS: Vancomycin 1.25 GM / NS 250 ML VIAL-2-BAG IVPB SCH (17:04)
[2025-06-19] MEDS: Insulin Glargine 30 UNITS/0.3 ML VIAL SC SCH (20:19)
[2025-06-19 20:33] VITALS: BMI 43.5
[2025-06-20] MEDS: Insulin Glargine 30 UNITS/0.3 ML VIAL SC SCH (08:01)
[2025-06-20 09:05] LABS: #Basophils 0.04 10x3/uL (0.0-0.2); #Eosinophils 0.25 10x3/uL (0.0-0.7); #Monocytes 0.80 10x3/uL (0.11-0.59); #Neutrophils 4.80 10x3/uL (1.40-6.50); %Basophils 0.5 % (0.0-1.0); %Eosinophils 3.3 % (0.0-10.0); %Lymphocytes 22.4 % (21.0-51.0); %Monocytes 10.5 % (0.0-10.0); %Neutrophils 62.9 % (42.0-75.0); Hematocrit 29.9 % (42.0-52.0); Hemoglobin 8.8 g/dL (14.0-18.0); Mean Corpuscular Hemoglobin 26.2 pg (27.0-31.0); Mean Corpuscular Volume 89.0 fL (78.0-98.0); Platelet Count 218 10x3/uL (130-400); Red Blood Cell (RBC) Count 3.36 mill/uL (4.70-6.10); White Blood Cell (WBC) Count 7.63 10x3/uL (4.8-10.8)
[2025-06-20 09:28] LABS: ALT (SGPT) Less than 7 U/L (Less than 45); AST (SGOT) 18 U/L (11-34); Albumin 2.4 g/dL (3.1-4.5); Alkaline Phosphatase 73 U/L (40-110); Anion Gap 18 mmol/L (10-20); BUN (Urea Nitrogen) 36 mg/dL (8.4-25.7); Bilirubin, Total 0.3 mg/dL (0.3-1.2); Calc. Creatinine Clearance 18 mL/min (70-130); Calcium 9.0 mg/dL (7.8-10.44); Carbon Dioxide 25 mmol/L (23-31); Chloride 99 mmol/L (98-107); Globulin 4.6 g/dL (2.4-3.5); Glucose 97 mg/dL (80-115); Potassium 3.9 mmol/L (3.5-5.1); Sodium 138 mmol/L (136-145)
[2025-06-20] MEDS ORDERED: Iopamidol 370 76% 100 ML VIAL ONE (11:55)
[2025-06-21 10:39] LABS: #Basophils 0.03 10x3/uL (0.0-0.2); #Eosinophils 0.33 10x3/uL (0.0-0.7); #Monocytes 0.66 10x3/uL (0.11-0.59); #Neutrophils 5.87 10x3/uL (1.40-6.50); %Basophils 0.3 % (0.0-1.0); %Eosinophils 3.8 % (0.0-10.0); %Lymphocytes 21.0 % (21.0-51.0); %Monocytes 7.5 % (0.0-10.0); %Neutrophils 67.1 % (42.0-75.0); Hematocrit 30.5 % (42.0-52.0); Hemoglobin 9.0 g/dL (14.0-18.0); Mean Corpuscular Hemoglobin 25.9 pg (27.0-31.0); Mean Corpuscular Volume 87.6 fL (78.0-98.0); Platelet Count 234 10x3/uL (130-400); Red Blood Cell (RBC) Count 3.48 mill/uL (4.70-6.10); White Blood Cell (WBC) Count 8.76 10x3/uL (4.8-10.8)
[2025-06-21 10:52] LABS: Vancomycin, Trough 19.8 ug/mL
[2025-06-21 10:54] LABS: ALT (SGPT) Less than 7 U/L (Less than 45); AST (SGOT) 16 U/L (11-34); Albumin 2.4 g/dL (3.1-4.5); Alkaline Phosphatase 71 U/L (40-110); Anion Gap 17 mmol/L (10-20); BUN (Urea Nitrogen) 57 mg/dL (8.4-25.7); Bilirubin, Total 0.2 mg/dL (0.3-1.2); Calc. Creatinine Clearance 15 mL/min (70-130); Calcium 9.0 mg/dL (7.8-10.44); Carbon Dioxide 26 mmol/L (23-31); Chloride 97 mmol/L (98-107); Globulin 4.5 g/dL (2.4-3.5); Glucose 124 mg/dL (80-115); Potassium 4.2 mmol/L (3.5-5.1); Sodium 136 mmol/L (136-145)
[2025-06-21] MEDS ORDERED: Iopamidol-370 76% 500 ML MDV (1 ML CHARGE) ONE (12:50)
[2025-06-21] MEDS ORDERED: Gabapentin 300 MG CAP PO SCH (17:00)
[2025-06-21] MEDS: Vancomycin 1 GM in Premix 1 BAG IVPB SCH (20:19)
[2025-06-22 04:57] LABS: #Basophils 0.03 10x3/uL (0.0-0.2); #Eosinophils 0.30 10x3/uL (0.0-0.7); #Monocytes 0.58 10x3/uL (0.11-0.59); #Neutrophils 5.50 10x3/uL (1.40-6.50); %Basophils 0.4 % (0.0-1.0); %Eosinophils 3.7 % (0.0-10.0); %Lymphocytes 21.4 % (21.0-51.0); %Monocytes 7.1 % (0.0-10.0); %Neutrophils 67.2 % (42.0-75.0); Hematocrit 30.4 % (42.0-52.0); Hemoglobin 8.9 g/dL (14.0-18.0); Mean Corpuscular Hemoglobin 25.5 pg (27.0-31.0); Mean Corpuscular Volume 87.1 fL (78.0-98.0); Platelet Count 222 10x3/uL (130-400); Red Blood Cell (RBC) Count 3.49 mill/uL (4.70-6.10); White Blood Cell (WBC) Count 8.18 10x3/uL (4.8-10.8)
[2025-06-22 05:19] LABS: ALT (SGPT) Less than 7 U/L (Less than 45); AST (SGOT) 15 U/L (11-34); Albumin 2.4 g/dL (3.1-4.5); Alkaline Phosphatase 70 U/L (40-110); Anion Gap 14 mmol/L (10-20); BUN (Urea Nitrogen) 34 mg/dL (8.4-25.7); Bilirubin, Total 0.2 mg/dL (0.3-1.2); Calc. Creatinine Clearance 23 mL/min (70-130); Calcium 8.8 mg/dL (7.8-10.44); Carbon Dioxide 29 mmol/L (23-31); Chloride 97 mmol/L (98-107); Globulin 4.5 g/dL (2.4-3.5); Glucose 92 mg/dL (80-115); Potassium 3.9 mmol/L (3.5-5.1); Sodium 136 mmol/L (136-145)
[2025-06-22] MEDS ORDERED: Bacitracin Zinc Ointment 30 gm TUBE ONE (12:41)
[2025-06-22] MEDS ORDERED: PROPOFOL 200 MG/20 ML VIAL ONE (12:50)
[2025-06-22] MEDS ORDERED: PHENYLEPHRINE-NS 100 MCG/ML 10 ML SYRINGE ONE (12:50)
[2025-06-22] MEDS ORDERED: Rocuronium Bromide 10 MG/ML (10ML VIAL) ONE (12:50)
[2025-06-22] MEDS ORDERED: Ondansetron PF 4 MG/2 ML Vial ONE (13:41)
[2025-06-22] MEDS ORDERED: SUGAMMADEX SODIUM 200 MG/2 ML VIAL ONE (13:42)
[2025-06-23 04:37] LABS: #Basophils 0.04 10x3/uL (0.0-0.2); #Eosinophils 0.24 10x3/uL (0.0-0.7); #Monocytes 0.68 10x3/uL (0.11-0.59); #Neutrophils 5.06 10x3/uL (1.40-6.50); %Basophils 0.5 % (0.0-1.0); %Eosinophils 3.1 % (0.0-10.0); %Lymphocytes 22.3 % (21.0-51.0); %Monocytes 8.8 % (0.0-10.0); %Neutrophils 65.0 % (42.0-75.0); Hematocrit 29.8 % (42.0-52.0); Hemoglobin 8.8 g/dL (14.0-18.0); Mean Corpuscular Hemoglobin 26.0 pg (27.0-31.0); Mean Corpuscular Volume 87.9 fL (78.0-98.0); Platelet Count 226 10x3/uL (130-400); Red Blood Cell (RBC) Count 3.39 mill/uL (4.70-6.10); White Blood Cell (WBC) Count 7.77 10x3/uL (4.8-10.8)
[2025-06-23 04:56] LABS: Anion Gap 16 mmol/L (10-20); BUN (Urea Nitrogen) 46 mg/dL (8.4-25.7); Calc. Creatinine Clearance 18 mL/min (70-130); Carbon Dioxide 26 mmol/L (23-31); Chloride 99 mmol/L (98-107); Potassium 4.5 mmol/L (3.5-5.1); Sodium 136 mmol/L (136-145)
[2025-06-23 04:57] LABS: ALT (SGPT) Less than 7 U/L (Less than 45); AST (SGOT) 14 U/L (11-34); Albumin 2.4 g/dL (3.1-4.5); Alkaline Phosphatase 69 U/L (40-110); Bilirubin, Total 0.2 mg/dL (0.3-1.2); Calcium 8.7 mg/dL (7.8-10.44); Globulin 4.2 g/dL (2.4-3.5); Glucose 87 mg/dL (80-115)
[2025-06-23 07:40] LABS: Vancomycin, Trough 25.3 ug/mL
[2025-06-23] MEDS: Apixaban 2.5 MG TAB PO SCH (08:32)
[2025-06-23] MEDS: EPOETIN ALFA-EPBX (ESRD) 10,000 UNITS/ML VIAL IVP SCH (15:19)
[2025-06-24 06:23] LABS: #Basophils 0.05 10x3/uL (0.0-0.2); #Eosinophils 0.27 10x3/uL (0.0-0.7); #Monocytes 0.82 10x3/uL (0.11-0.59); #Neutrophils 5.74 10x3/uL (1.40-6.50); %Basophils 0.6 % (0.0-1.0); %Eosinophils 3.1 % (0.0-10.0); %Lymphocytes 21.7 % (21.0-51.0); %Monocytes 9.3 % (0.0-10.0); %Neutrophils 65.0 % (42.0-75.0); Hematocrit 30.8 % (42.0-52.0); Hemoglobin 9.0 g/dL (14.0-18.0); Mean Corpuscular Hemoglobin 25.9 pg (27.0-31.0); Mean Corpuscular Volume 88.8 fL (78.0-98.0); Platelet Count 221 10x3/uL (130-400); Red Blood Cell (RBC) Count 3.47 mill/uL (4.70-6.10); White Blood Cell (WBC) Count 8.83 10x3/uL (4.8-10.8)
[2025-06-24 06:52] LABS: ALT (SGPT) Less than 7 U/L (Less than 45); AST (SGOT) 15 U/L (11-34); Albumin 2.6 g/dL (3.1-4.5); Alkaline Phosphatase 72 U/L (40-110); Anion Gap 17 mmol/L (10-20); BUN (Urea Nitrogen) 38 mg/dL (8.4-25.7); Bilirubin, Total 0.2 mg/dL (0.3-1.2); Calc. Creatinine Clearance 24 mL/min (70-130); Calcium 9.0 mg/dL (7.8-10.44); Carbon Dioxide 27 mmol/L (23-31); Chloride 99 mmol/L (98-107); Globulin 4.6 g/dL (2.4-3.5); Glucose 67 mg/dL (80-115); Potassium 4.3 mmol/L (3.5-5.1); Sodium 139 mmol/L (136-145)
[2025-06-25 04:54] LABS: #Basophils 0.04 10x3/uL (0.0-0.2); #Eosinophils 0.21 10x3/uL (0.0-0.7); #Monocytes 0.66 10x3/uL (0.11-0.59); #Neutrophils 4.80 10x3/uL (1.40-6.50); %Basophils 0.5 % (0.0-1.0); %Eosinophils 2.7 % (0.0-10.0); %Lymphocytes 27.1 % (21.0-51.0); %Monocytes 8.4 % (0.0-10.0); %Neutrophils 60.9 % (42.0-75.0); Hematocrit 32.4 % (42.0-52.0); Hemoglobin 9.5 g/dL (14.0-18.0); Mean Corpuscular Hemoglobin 25.9 pg (27.0-31.0); Mean Corpuscular Volume 88.3 fL (78.0-98.0); Platelet Count 232 10x3/uL (130-400); Red Blood Cell (RBC) Count 3.67 mill/uL (4.70-6.10); White Blood Cell (WBC) Count 7.87 10x3/uL (4.8-10.8)
[2025-06-25 05:13] LABS: ALT (SGPT) Less than 7 U/L (Less than 45); AST (SGOT) 18 U/L (11-34); Albumin 2.6 g/dL (3.1-4.5); Alkaline Phosphatase 70 U/L (40-110); Anion Gap 17 mmol/L (10-20); BUN (Urea Nitrogen) 53 mg/dL (8.4-25.7); Bilirubin, Total 0.2 mg/dL (0.3-1.2); Calc. Creatinine Clearance 18 mL/min (70-130); Calcium 9.0 mg/dL (7.8-10.44); Carbon Dioxide 26 mmol/L (23-31); Chloride 100 mmol/L (98-107); Globulin 4.6 g/dL (2.4-3.5); Glucose 107 mg/dL (80-115); Potassium 4.3 mmol/L (3.5-5.1); Sodium 139 mmol/L (136-145)
[2025-06-25 07:17] LABS: Vancomycin, Trough 19.6 ug/mL
[2025-06-25] MEDS: Heparin 10,000 UNITS/ 10 ML VIAL CATH SCH (12:44)
[2025-06-25] MEDS: Vancomycin 1 GM in Premix 1 BAG IVPB SCH (16:41)
[2025-06-25] MEDS: HYDROcodone/Acetaminophen 10/325 mg Tablet PO PRN (20:30)
[2025-06-26 05:06] LABS: #Basophils 0.05 10x3/uL (0.0-0.2); #Eosinophils 0.25 10x3/uL (0.0-0.7); #Monocytes 0.75 10x3/uL (0.11-0.59); #Neutrophils 5.22 10x3/uL (1.40-6.50); %Basophils 0.6 % (0.0-1.0); %Eosinophils 2.9 % (0.0-10.0); %Lymphocytes 27.6 % (21.0-51.0); %Monocytes 8.6 % (0.0-10.0); %Neutrophils 60.1 % (42.0-75.0); Hematocrit 32.2 % (42.0-52.0); Hemoglobin 9.4 g/dL (14.0-18.0); Mean Corpuscular Hemoglobin 25.9 pg (27.0-31.0); Mean Corpuscular Volume 88.7 fL (78.0-98.0); Platelet Count 263 10x3/uL (130-400); Red Blood Cell (RBC) Count 3.63 mill/uL (4.70-6.10); White Blood Cell (WBC) Count 8.69 10x3/uL (4.8-10.8)
[2025-06-26 05:16] LABS: ALT (SGPT) Less than 7 U/L (Less than 45); AST (SGOT) 19 U/L (11-34); Albumin 2.7 g/dL (3.1-4.5); Alkaline Phosphatase 74 U/L (40-110); Anion Gap 14 mmol/L (10-20); BUN (Urea Nitrogen) 29 mg/dL (8.4-25.7); Bilirubin, Total 0.2 mg/dL (0.3-1.2); Calc. Creatinine Clearance 25 mL/min (70-130); Calcium 9.1 mg/dL (7.8-10.44); Carbon Dioxide 29 mmol/L (23-31); Chloride 98 mmol/L (98-107); Globulin 4.8 g/dL (2.4-3.5); Glucose 93 mg/dL (80-115); Potassium 4.1 mmol/L (3.5-5.1); Sodium 137 mmol/L (136-145)
[2025-06-26] MEDS: Acetaminophen 325 MG TAB PO PRN (11:50)
[2025-06-27 06:15] LABS: #Basophils 0.04 10x3/uL (0.0-0.2); #Eosinophils 0.23 10x3/uL (0.0-0.7); #Monocytes 0.72 10x3/uL (0.11-0.59); #Neutrophils 4.67 10x3/uL (1.40-6.50); %Basophils 0.5 % (0.0-1.0); %Eosinophils 2.9 % (0.0-10.0); %Lymphocytes 28.4 % (21.0-51.0); %Monocytes 9.1 % (0.0-10.0); %Neutrophils 58.8 % (42.0-75.0); Hematocrit 32.7 % (42.0-52.0); Hemoglobin 9.7 g/dL (14.0-18.0); Mean Corpuscular Hemoglobin 26.3 pg (27.0-31.0); Mean Corpuscular Volume 88.6 fL (78.0-98.0); Platelet Count 273 10x3/uL (130-400); Red Blood Cell (RBC) Count 3.69 mill/uL (4.70-6.10); White Blood Cell (WBC) Count 7.93 10x3/uL (4.8-10.8)
[2025-06-27 06:33] LABS: ALT (SGPT) Less than 7 U/L (Less than 45); AST (SGOT) 17 U/L (11-34); Albumin 2.7 g/dL (3.1-4.5); Alkaline Phosphatase 73 U/L (40-110); Anion Gap 16 mmol/L (10-20); BUN (Urea Nitrogen) 44 mg/dL (8.4-25.7); Bilirubin, Total 0.2 mg/dL (0.3-1.2); Calc. Creatinine Clearance 18 mL/min (70-130); Calcium 9.1 mg/dL (7.8-10.44); Carbon Dioxide 25 mmol/L (23-31); Chloride 101 mmol/L (98-107); Globulin 4.5 g/dL (2.4-3.5); Glucose 87 mg/dL (80-115); Potassium 4.3 mmol/L (3.5-5.1); Sodium 138 mmol/L (136-145)
[2025-06-27] MEDS: Insulin Glargine 30 UNITS/0.3 ML VIAL SC SCH (08:52)
[2025-06-28 08:50] LABS: #Basophils 0.04 10x3/uL (0.0-0.2); #Eosinophils 0.25 10x3/uL (0.0-0.7); #Monocytes 0.74 10x3/uL (0.11-0.59); #Neutrophils 4.32 10x3/uL (1.40-6.50); %Basophils 0.5 % (0.0-1.0); %Eosinophils 3.3 % (0.0-10.0); %Lymphocytes 29.6 % (21.0-51.0); %Monocytes 9.7 % (0.0-10.0); %Neutrophils 56.6 % (42.0-75.0); Hematocrit 32.8 % (42.0-52.0); Hemoglobin 9.5 g/dL (14.0-18.0); Mean Corpuscular Hemoglobin 26.2 pg (27.0-31.0); Mean Corpuscular Volume 90.4 fL (78.0-98.0); Platelet Count 275 10x3/uL (130-400); Red Blood Cell (RBC) Count 3.63 mill/uL (4.70-6.10); White Blood Cell (WBC) Count 7.63 10x3/uL (4.8-10.8)
[2025-06-28 09:04] LABS: Vancomycin, Trough 22.7 ug/mL
[2025-06-28 09:20] LABS: ALT (SGPT) 7 U/L (Less than 45); AST (SGOT) 18 U/L (11-34); Albumin 2.7 g/dL (3.1-4.5); Alkaline Phosphatase 72 U/L (40-110); Anion Gap 20 mmol/L (10-20); BUN (Urea Nitrogen) 55 mg/dL (8.4-25.7); Bilirubin, Total 0.2 mg/dL (0.3-1.2); Calc. Creatinine Clearance 14 mL/min (70-130); Calcium 9.4 mg/dL (7.8-10.44); Carbon Dioxide 24 mmol/L (23-31); Chloride 99 mmol/L (98-107); Globulin 4.7 g/dL (2.4-3.5); Glucose 80 mg/dL (80-115); Potassium 4.6 mmol/L (3.5-5.1); Sodium 138 mmol/L (136-145)
[2025-06-29 05:22] LABS: #Basophils 0.05 10x3/uL (0.0-0.2); #Eosinophils 0.26 10x3/uL (0.0-0.7); #Monocytes 0.80 10x3/uL (0.11-0.59); #Neutrophils 5.56 10x3/uL (1.40-6.50); %Basophils 0.6 % (0.0-1.0); %Eosinophils 3.0 % (0.0-10.0); %Lymphocytes 24.0 % (21.0-51.0); %Monocytes 9.1 % (0.0-10.0); %Neutrophils 63.1 % (42.0-75.0); Hematocrit 33.9 % (42.0-52.0); Hemoglobin 10.0 g/dL (14.0-18.0); Mean Corpuscular Hemoglobin 26.2 pg (27.0-31.0); Mean Corpuscular Volume 89.0 fL (78.0-98.0); Platelet Count 275 10x3/uL (130-400); Red Blood Cell (RBC) Count 3.81 mill/uL (4.70-6.10); White Blood Cell (WBC) Count 8.80 10x3/uL (4.8-10.8)
[2025-06-29 05:37] LABS: ALT (SGPT) 7 U/L (Less than 45); AST (SGOT) 17 U/L (11-34); Albumin 2.8 g/dL (3.1-4.5); Alkaline Phosphatase 77 U/L (40-110); Anion Gap 18 mmol/L (10-20); BUN (Urea Nitrogen) 32 mg/dL (8.4-25.7); Bilirubin, Total 0.2 mg/dL (0.3-1.2); Calc. Creatinine Clearance 22 mL/min (70-130); Calcium 9.0 mg/dL (7.8-10.44); Carbon Dioxide 27 mmol/L (23-31); Chloride 99 mmol/L (98-107); Globulin 4.6 g/dL (2.4-3.5); Glucose 133 mg/dL (80-115); Potassium 4.3 mmol/L (3.5-5.1); Sodium 140 mmol/L (136-145)
[2025-06-30 05:07] LABS: #Basophils 0.05 10x3/uL (0.0-0.2); #Eosinophils 0.29 10x3/uL (0.0-0.7); #Monocytes 0.77 10x3/uL (0.11-0.59); #Neutrophils 4.77 10x3/uL (1.40-6.50); %Basophils 0.6 % (0.0-1.0); %Eosinophils 3.4 % (0.0-10.0); %Lymphocytes 30.3 % (21.0-51.0); %Monocytes 9.1 % (0.0-10.0); %Neutrophils 56.4 % (42.0-75.0); Hematocrit 31.9 % (42.0-52.0); Hemoglobin 9.2 g/dL (14.0-18.0); Mean Corpuscular Hemoglobin 25.8 pg (27.0-31.0); Mean Corpuscular Volume 89.4 fL (78.0-98.0); Platelet Count 261 10x3/uL (130-400); Red Blood Cell (RBC) Count 3.57 mill/uL (4.70-6.10); White Blood Cell (WBC) Count 8.46 10x3/uL (4.8-10.8)
[2025-06-30 05:33] LABS: ALT (SGPT) Less than 7 U/L (Less than 45); AST (SGOT) 16 U/L (11-34); Albumin 2.6 g/dL (3.1-4.5); Alkaline Phosphatase 76 U/L (40-110); Anion Gap 13 mmol/L (10-20); BUN (Urea Nitrogen) 56 mg/dL (8.4-25.7); Bilirubin, Total 0.2 mg/dL (0.3-1.2); Calc. Creatinine Clearance 17 mL/min (70-130); Calcium 9.2 mg/dL (7.8-10.44); Carbon Dioxide 28 mmol/L (23-31); Chloride 99 mmol/L (98-107); Globulin 4.4 g/dL (2.4-3.5); Glucose 103 mg/dL (80-115); Potassium 4.4 mmol/L (3.5-5.1); Sodium 136 mmol/L (136-145)
[2025-06-30 07:47] LABS: Vancomycin, Trough 21.6 ug/mL
[2025-06-30] MEDS ORDERED: Etomidate 40 MG (20 mL) VIAL ONE (18:13)
[2025-06-30] MEDS ORDERED: Lidocaine 1% PF 5 ML VIAL ONE (18:17)
[2025-06-30] MEDS ORDERED: Thrombin 5000 UNITS/5 ML VIAL ONE (18:18)
[2025-06-30] MEDS ORDERED: Bupivacaine 0.25% HCL 30 ML VIAL ONE (18:18)
[2025-06-30] MEDS ORDERED: Bacitracin Zinc Ointment 30 gm TUBE ONE (18:18)
[2025-06-30] MEDS ORDERED: Lidocaine 2% 6 ML (Jelly) SYR ONE (18:47)
[2025-06-30] MEDS ORDERED: Ondansetron PF 4 MG/2 ML Vial ONE (18:50)
[2025-07-01 06:11] LABS: #Basophils 0.04 10x3/uL (0.0-0.2); #Eosinophils 0.25 10x3/uL (0.0-0.7); #Monocytes 0.66 10x3/uL (0.11-0.59); #Neutrophils 3.77 10x3/uL (1.40-6.50); %Basophils 0.6 % (0.0-1.0); %Eosinophils 3.7 % (0.0-10.0); %Lymphocytes 29.5 % (21.0-51.0); %Monocytes 9.8 % (0.0-10.0); %Neutrophils 56.3 % (42.0-75.0); Hematocrit 35.6 % (42.0-52.0); Hemoglobin 10.3 g/dL (14.0-18.0); Mean Corpuscular Hemoglobin 26.5 pg (27.0-31.0); Mean Corpuscular Volume 91.5 fL (78.0-98.0); Platelet Count 202 10x3/uL (130-400); Red Blood Cell (RBC) Count 3.89 mill/uL (4.70-6.10); White Blood Cell (WBC) Count 6.71 10x3/uL (4.8-10.8)
[2025-07-01 07:27] LABS: ALT (SGPT) 8 U/L (Less than 45); AST (SGOT) 20 U/L (11-34); Albumin 2.8 g/dL (3.1-4.5); Alkaline Phosphatase 82 U/L (40-110); Anion Gap 13 mmol/L (10-20); BUN (Urea Nitrogen) 35 mg/dL (8.4-25.7); Bilirubin, Total 0.2 mg/dL (0.3-1.2); Calc. Creatinine Clearance 22 mL/min (70-130); Calcium 9.0 mg/dL (7.8-10.44); Carbon Dioxide 28 mmol/L (23-31); Chloride 100 mmol/L (98-107); Globulin 4.6 g/dL (2.4-3.5); Glucose 126 mg/dL (80-115); Potassium 4.5 mmol/L (3.5-5.1); Sodium 136 mmol/L (136-145)
[2025-07-02 06:32] LABS: ALT (SGPT) 7 U/L (Less than 45); AST (SGOT) 15 U/L (11-34); Albumin 3.0 g/dL (3.1-4.5); Alkaline Phosphatase 83 U/L (40-110); Anion Gap 17 mmol/L (10-20); BUN (Urea Nitrogen) 55 mg/dL (8.4-25.7); Bilirubin, Total 0.3 mg/dL (0.3-1.2); Calc. Creatinine Clearance 16 mL/min (70-130); Calcium 9.5 mg/dL (7.8-10.44); Carbon Dioxide 26 mmol/L (23-31); Chloride 99 mmol/L (98-107); Globulin 4.5 g/dL (2.4-3.5); Glucose 107 mg/dL (80-115); Potassium 4.6 mmol/L (3.5-5.1); Sodium 137 mmol/L (136-145)
[2025-07-02 06:52] LABS: Vancomycin, Trough 20.2 ug/mL
[2025-07-02 07:28] LABS: #Basophils 0.03 10x3/uL (0.0-0.2); #Eosinophils 0.23 10x3/uL (0.0-0.7); #Monocytes 0.55 10x3/uL (0.11-0.59); #Neutrophils 3.65 10x3/uL (1.40-6.50); %Basophils 0.5 % (0.0-1.0); %Eosinophils 3.6 % (0.0-10.0); %Lymphocytes 30.7 % (21.0-51.0); %Monocytes 8.5 % (0.0-10.0); %Neutrophils 56.4 % (42.0-75.0); Hematocrit 39.0 % (42.0-52.0); Hemoglobin 11.3 g/dL (14.0-18.0); Mean Corpuscular Hemoglobin 26.3 pg (27.0-31.0); Mean Corpuscular Volume 90.7 fL (78.0-98.0); Platelet Count 200 10x3/uL (130-400); Red Blood Cell (RBC) Count 4.30 mill/uL (4.70-6.10); White Blood Cell (WBC) Count 6.46 10x3/uL (4.8-10.8)
[2025-07-02 23:10] VITALS: BP 110/70; TEMP 98.2
== END 2025-07-02 21:36 | DRG 616 ==
LOC: SURG B 20:24
PROVIDERS: ADMIT Student in an Organized Health Care Education/Training Program; ATTEND Student in an Organized Health Care Education/Training Program
PROC: 0P9 Upper Bones, Drainage (ICD-10-PCS; 2025-06-19)
PROC: 0PBR0ZZ Excision of Right Thumb Phalanx, Open Approach (ICD-10-PCS; 2025-06-22)
PROC: 0Y6M0Z6 Detachment at Right Foot, Complete 3rd Ray, Open Approach (ICD-10-PCS; 2025-06-26)
PROC: 0PBR0ZZ Excision of Right Thumb Phalanx, Open Approach (ICD-10-PCS; 2025-06-30)
PROC: 3E03329 Introduction of Other Anti-infective into Peripheral Vein, Percutaneous Approach (ICD-10-PCS; principal; 2025-07-02)
DX: E11.69 Type 2 diabetes mellitus with other specified complication (principal); J96.01 Acute respiratory failure with hypoxia; N18.6 End stage renal disease; M86.141 Other acute osteomyelitis, right hand; I12.0 Hypertensive chronic kidney disease with stage 5 chronic kidney disease or end stage renal disease; E87.20 Acidosis, unspecified; M86.171 Other acute osteomyelitis, right ankle and foot; E11.22 Type 2 diabetes mellitus with diabetic chronic kidney disease; I44.1 Atrioventricular block, second degree; E03.9 Hypothyroidism, unspecified; I25.10 Atherosclerotic heart disease of native coronary artery without angina pectoris; E78.5 Hyperlipidemia, unspecified; E87.6 Hypokalemia; E87.8 Other disorders of electrolyte and fluid balance, not elsewhere classified; D63.1 Anemia in chronic kidney disease; I95.9 Hypotension, unspecified; Z95.0 Presence of cardiac pacemaker; Z90.49 Acquired absence of other specified parts of digestive tract; Z98.890 Other specified postprocedural states; Z82.49 Family history of ischemic heart disease and other diseases of the circulatory system; Z99.2 Dependence on renal dialysis; Z83.3 Family history of diabetes mellitus; Z87.891 Personal history of nicotine dependence; Z79.890 Hormone replacement therapy; Z79.899 Other long term (current) drug therapy; Z79.4 Long term (current) use of insulin
CPT/HCPCS: 36415; 36416; 76014; 80053; 80202; 83036; 83605; 83880; 85025; 86141; 87070; 87076; 87077; 87186; 87205; 88307; 88311; 90935; 93923; 93970; 97139; G0257; J0665; J0692; J1644; J1815; J2003; J2405; J2704; J3010; J3373; J7050; J7120; Q5105; Q9967